=== PATIENT | male | born 1995 | race Caucasian/White ===

== ENCOUNTER 2024-09-07 10:51 | Emergency (ER) | payer MEDICARE, MEDICAID ==
[~2024-09-07] VITALS: Ht 182.9 cm; Wt 93.8 kg
[2024-09-07 16:16] VITALS: BP 130/75; TEMP 97.1; O2SAT 100
== END 2024-09-07 16:20 | disposition home or self-care (01) ==
LOC: M ED 10:51
DX: M79.652 Pain in left thigh (principal); Q90.9 Down syndrome, unspecified; Z86.718 Personal history of other venous thrombosis and embolism; Z88.8 Allergy status to other drugs, medicaments and biological substances